=== PATIENT | female | born 1955 | race American Indian/Alaskan Native ===

== ENCOUNTER 2019-02-10 09:28 | Emergency (ER) | payer OTHER ==
[2019-02-10] MEDS ORDERED: KETOROLAC 60 MG/2 ML INJ IM ONE (10:48)
--- NOTE | 2019-02-10 10:49 | Emergency Department Report ---
ED General Adult HPI - General Chief complaint: Skin/Abscess/Foreign Body Stated complaint: SPIDER BITE Source: patient Mode of arrival: Ambulatory Limitations: No Limitations - History of Present Illness Initial comments: 63yo BF states that she was bitten by a spider a week ago and was given a Clindamycin and Diclofenac. She states that there is discharge and pain at the site of the bite. She rates the pain a 7 of 10. She states that her wound is not healing well. -: Gradual Location: left, upper extremity Radiation: non-radiation Severity scale (0 -10): 7 Quality: aching Consistency: constant Improves with: none Worsens with: none Associated Symptoms: denies other symptoms Treatments Prior to Arrival: other (Clindamycin, Hydrocodone and Diclofenac) - Related Data Previous Rx's Medication Instructions Recorded Last Taken Type Clindamycin [Clindamycin CAP] 300 mg PO Q8H 10 Days #30 cap 02/10/19 Unknown Rx Fluconazole [Diflucan TAB] 150 mg PO ONCE 1 Days #2 tablet 02/10/19 Unknown Rx Allergies Allergy/AdvReac Type Severity Reaction Status Date / Time No Known Allergies Allergy Verified 02/10/19 10:50 ED Review of Systems ROS: Stated complaint: SPIDER BITE Other details as noted in HPI Comment: All other systems reviewed and negative Musculoskeletal: as per HPI Skin: as per HPI ED Past Medical Hx - Past Medical History Previous Medical History?: Yes Hx Hypertension: Yes - Social History Smoking Status: Former Smoker - Medications Home Medications: Home Medications Medication Instructions Recorded Confirmed Last Taken Type Clindamycin [Clindamycin CAP] 300 mg PO Q8H 10 Days #30 cap 02/10/19 Unknown Rx Fluconazole [Diflucan TAB] 150 mg PO ONCE 1 Days #2 tablet 02/10/19 Unknown Rx ED Physical Exam - General Limitations: No Limitations General appearance: alert, in no apparent distress - Head Head exam: Present: atraumatic, normocephalic - Eye Eye exam: Present: normal appearance, PERRL, EOMI - ENT ENT exam: Present: normal exam, normal orophraynx - Neck Neck exam: Present: normal inspection, tenderness, full ROM - Respiratory Respiratory exam: Present: normal lung sounds bilaterally. Absent: respiratory distress, wheezes - Cardiovascular Cardiovascular Exam: Present: regular rate, normal rhythm, normal heart sounds - GI/Abdominal GI/Abdominal exam: Present: soft. Absent: distended, tenderness - Rectal Rectal exam: Present: deferred - Extremities Exam Extremities exam: Present: tenderness, other (L proximal forearm swelling and green discharge) - Back Exam Back exam: Present: normal inspection, full ROM - Neurological Exam Neurological exam: Present: alert, altered, oriented X3 - Psychiatric Psychiatric exam: Present: normal affect, normal mood. Absent: depressed - Skin Skin exam: Present: warm, dry, intact, erythema (L forearm) ED Course Vital Signs 02/10/19 02/10/19 02/10/19 09:54 11:28 11:54 Temperature 98.2 F Pulse Rate 78 Respiratory 18 18 19 Rate Blood Pressure 190/88 O2 Sat by Pulse 92 Oximetry 02/10/19 13:42 Temperature 98.3 F Pulse Rate 69 Respiratory 16 Rate Blood Pressure 157/84 O2 Sat by Pulse 95 Oximetry - Procedure Description Procedures done: An incision was made at the Lateral-posterior proximal forearm. The patient was given a Toradol injection and Lidocaine with Epinephrine was given for topical anesthesia. The wound was packed and a sterile dressing was applied. Sensory and neuro exam intact pre and post-procedure. - I & D Arm Type of Procedure: Simple Site: L lateral-posterior proximal forearm I & D Procedure: betadine prep, sterile dressing applied, gauze wick placed Progress: Pt was given a Toradol injection and Lidocaine with Epinephrine was used for local anesthesia. An incision was made and a small purulent discharge was excreted. The wound was packed and dressed. Neuro and sensory exam pre and post procedure intact. - Laceration /Wound Repair Arm Anesthesia: Lidocaine w/ Epi ED Medical Decision Making - Medical Decision Making 63yo BF states that she was bitten by a spider a week ago and was given a Clindamycin and Diclofenac. She states that there is discharge and pain at the site of the bite. She rates the pain a 7 of 10. It was determined that I & D treatment would be implemented. An incision was made at the Lateral-posterior proximal forearm. The patient was given a Toradol injection and Lidocaine with Epinephrine was given for topical anesthesia. The wound was packed and a sterile dressing was applied. Sensory and neuro exam intact pre and post-procedure. Pt tolerated procedure well. Pt was given a refill on antibiotics and was instructed to take as directed. She was also told to continue her current Hydrocodone prescription, f/u with PCP/ER in 3 days for wound repacking and re-assessment. See ER as needed. Pt verbalized understanding and agreed with the plan of care. Critical care attestation.: If time is entered above; I have spent that time in minutes in the direct care of this critically ill patient, excluding procedure time. ED Disposition Clinical Impression: Abscess Disposition: DC-01 TO HOME OR SELFCARE Is pt being admited?: No Does the pt Need Aspirin: No Condition: Stable Instructions: Abscess (ED) Additional Instructions: Pt was given a refill on antibiotics and was instructed to take as directed. She was also told to continue her current Hydrocodone prescription, f/u with PCP/ER in 3 days for wound repacking and re-assessment. See ER as needed. Pt verbalized understanding and agreed with the plan of care. Prescriptions: Clindamycin [Clindamycin CAP] 300 mg PO Q8H 10 Days #30 cap Fluconazole [Diflucan TAB] 150 mg PO ONCE 1 Days #2 tablet Referrals: [facility] [Outside] - 3-5 Days
[2019-02-10] MEDS ORDERED: LIDOCAINE 1%/EPINEPHRINE 1:100,000 VIAL (20 ML) INFILTRATI NR (11:00)
[2019-02-10 13:50] VITALS: BP 157/84
== END 2019-02-10 14:34 | disposition home or self-care (01) ==
LOC: ED 09:28
DX: L02.512 Cutaneous abscess of left hand (principal); W57.XXXA Bitten or stung by nonvenomous insect and other nonvenomous arthropods, initial encounter; Y93.89 Activity, other specified; Y92.89 Other specified places as the place of occurrence of the external cause; Y99.8 Other external cause status
CPT/HCPCS: 10060; 96372; 99282; J1885

== ENCOUNTER 2019-02-13 10:48 | Emergency (ER) | payer OTHER ==
[2019-02-13 11:02] VITALS: BP 147/96
--- NOTE | 2019-02-13 12:37 | Emergency Department Report ---
- General Chief Complaint: Skin/Abscess/Foreign Body Stated Complaint: CHECK BITE ON LT ARM Time Seen by Provider: 02/13/19 11:51 Source: patient Mode of arrival: Ambulatory Limitations: No Limitations - History of Present Illness Initial Comments: 63-year-old -[place] female patient presents for wound recheck and packing removal from her left elbow abscess today. Wound was I&D'd here in ED 02/10/2019. Patient states she is taking the antibiotics as prescribed. She states the pain has improved and denies any fever/chills/body aches. Patient states she has not checked the wound under the dressing since leaving ED and therefore is unsure about worsening redness. She rates her current pain as a 3/10 in severity. - Related Data Previous Rx's Medication Instructions Recorded Last Taken Type Clindamycin [Clindamycin CAP] 300 mg PO Q8H 10 Days #30 cap 02/10/19 Unknown Rx Fluconazole [Diflucan TAB] 150 mg PO ONCE 1 Days #2 tablet 02/10/19 Unknown Rx Mupirocin [Bactroban 2% OINT] 1 applic TP TID 7 Days #1 tube 02/13/19 Unknown Rx Allergies Allergy/AdvReac Type Severity Reaction Status Date / Time No Known Allergies Allergy Verified 02/10/19 10:50 ED Review of Systems ROS: Stated complaint: CHECK BITE ON LT ARM Other details as noted in HPI Comment: All other systems reviewed and negative Skin: as per HPI ED Past Medical Hx - Past Medical History Previous Medical History?: Yes Hx Hypertension: Yes - Surgical History Past Surgical History?: No - Social History Smoking Status: Never Smoker Substance Use Type: None - Medications Home Medications: Home Medications Medication Instructions Recorded Confirmed Last Taken Type Clindamycin [Clindamycin CAP] 300 mg PO Q8H 10 Days #30 cap 02/10/19 Unknown Rx Fluconazole [Diflucan TAB] 150 mg PO ONCE 1 Days #2 tablet 02/10/19 Unknown Rx Mupirocin [Bactroban 2% OINT] 1 applic TP TID 7 Days #1 tube 02/13/19 Unknown Rx ED Physical Exam - General Limitations: No Limitations General appearance: alert, in no apparent distress - Head Head exam: Present: atraumatic, normocephalic - Eye Eye exam: Present: normal appearance. Absent: scleral icterus - Respiratory Respiratory exam: Absent: respiratory distress - Cardiovascular Cardiovascular Exam: Present: regular rate - Neurological Exam Neurological exam: Present: alert, oriented X3 - Psychiatric Psychiatric exam: Present: normal affect, normal mood - Skin Skin exam: Present: warm, dry, other ("noted on left elbow with packing in place. Mild surrounding erythema and tenderness to touch noted. No warmth or swelling noted. No active drainage noted. Packing removed without difficulty.) ED Course Vital Signs 02/13/19 11:01 Temperature 97.6 F Pulse Rate 69 Respiratory 16 Rate Blood Pressure 147/96 [Right] O2 Sat by Pulse 98 Oximetry ED Medical Decision Making - Medical Decision Making Patient here for wound recheck and packing removal from incision and drainage performed 02/10/2019. Patient states pain has improved and the denies any fever/chills/bodyaches. Wound appears to be healing well. Patient states compliance with oral antibiotics prescribed. Vital signs are WNL. Will add on mupirocin for extra bacterial coverage. Discussed wound care in detail and signs and symptoms that should prompt immediate return to the emergency department. Patient states understanding. Critical care attestation.: If time is entered above; I have spent that time in minutes in the direct care of this critically ill patient, excluding procedure time. ED Disposition Clinical Impression: Wound check, abscess Disposition: DC-01 TO HOME OR SELFCARE Is pt being admited?: No Condition: Stable Instructions: Acute Wound Care (ED), Incision and Drainage (ED) Prescriptions: Mupirocin [Bactroban 2% OINT] 1 applic TP TID 7 Days #1 tube Referrals: PRIMARY CARE, [Primary Care Provider] - 3-5 Days
[2019-02-13] MEDS ORDERED: MUPIROCIN 2% OINT 22 GM TP ONE (13:00)
== END 2019-02-13 12:54 | disposition home or self-care (01) ==
LOC: ED 10:48
DX: Z48.01 Encounter for change or removal of surgical wound dressing (principal); Z53.21 Procedure and treatment not carried out due to patient leaving prior to being seen by health care provider